=== PATIENT | female | born 1945 | race Caucasian/White ===

== ENCOUNTER 2017-12-29 20:40 | Emergency (ER) | payer MEDICARE, OTHER ==
[~2017-12-29] VITALS: Ht 172.7 cm; Wt 62.6 kg
[~2017-12-29 20:40] MED LIST: AMLODIPINE BES2.5 MG PO; LOSARTAN POTASS50 MG PO; MONTELUKAST SOD10 MG PO; SPIRONOLACTONE25 MG PO; Z.0.ATENOLOL25 MG PO; Z.0.LEVOTHYROXINE25 PO; ZOLPIDEM TARTRAT5 MG PO; clonidine PO
== END 2017-12-29 21:31 | disposition home or self-care (01) ==
LOC: ER 20:40
DX: S81.802A Unspecified open wound, left lower leg, initial encounter (principal); W22.8XXA Striking against or struck by other objects, initial encounter; Y93.01 Activity, walking, marching and hiking; Y92.008 Other place in unspecified non-institutional (private) residence as the place of occurrence of the external cause
CPT/HCPCS: 99282

== ENCOUNTER 2020-10-02 14:29 | Inpatient (IN) | payer MEDICARE, OTHER ==
[~2020-10-02] VITALS: Ht 172.7 cm; Wt 69.0 kg
[2020-10-02] MEDS ORDERED: SODIUM CHLORIDE 0.9% 1000ML 1,000 ML IV STA (14:46)
[2020-10-02] MEDS ORDERED: AMBIEN10 MG PO (14:55)
[2020-10-02] MEDS ORDERED: PROTONIX20 MG PO (14:55)
[2020-10-02] MEDS ORDERED: ZETIA10 MG PO (14:55)
[2020-10-02] MEDS ORDERED: HYDROCHLOROTHIA25 MG PO (14:55)
[2020-10-02] MEDS ORDERED: NEURONTIN300 MG PO (14:55)
[2020-10-02] MEDS ORDERED: ARMOUR PO (14:55)
[2020-10-02] MEDS ORDERED: PIPERACILLIN/TAZOBAC 3.375 GM in SODIUM CHLORIDE 0.9% 50ML 50 ML IV ONE (15:00)
[2020-10-02] MEDS ORDERED: VANCOMYCIN 1GM/NS 250 ML 250 ML IV ONE (15:00)
[2020-10-02] MEDS ORDERED: PIPER-TAZ 3.375 GM 50 ML IV ONE (15:00)
[2020-10-02 15:02] LABS: BASOPHILS # (AUTO) 0.1 (0.0-0.1); BASOPHILS % 0.6 % (0.0-1.0); EOSINOPHILS # (AUTO) 0.1 (0.0-0.4); EOSINOPHILS % 0.7 % (0.0-6.0); HEMATOCRIT 46.4 % (34.2-44.1); HEMOGLOBIN 15.1 g/dL (12.0-16.0); LYMPHOCYTES # (AUTO) 2.2 (1.0-3.2); LYMPHOCYTES % 16.3 % (18.0-39.1); MEAN CORPUSCULAR HEMOGLOBIN 27.1 pg (28-32); MEAN CORPUSCULAR HGB CONC 32.5 g/dL (31-35); MEAN CORPUSCULAR VOLUME 83.2 fL (81-99); MONOCYTES # (AUTO) 1.8 (0.2-0.8); MONOCYTES % 13.2 % (4.4-11.3); NEUTROPHILS # (AUTO) 9.3 (2.1-6.9); NEUTROPHILS % 68.5 % (38.7-80.0); PLATELET COUNT 317 x10e3/uL (140-360); RED BLOOD COUNT 5.58 x10e6/uL (3.6-5.1); RED CELL DISTRIBUTION WIDTH 14.2 % (11.7-14.4)
[2020-10-02 15:10] LABS: CLARITY,URINE SL CLOUDY (CLEAR); COLOR,URINE STRAW (YELLOW); KETONES,URINE TRACE (NEGATIVE); LEUKOCYTE ESTERASE ,URINE SMALL (NEGATIVE); NITRITE,URINE NEGATIVE (NEGATIVE); PROTEIN,URINE DIPSTICK NEGATIVE (NEGATIVE); URINE UROBILINOGEN 0.2 mg/dL (0.2 - 1)
[2020-10-02 15:19] LABS: INR 0.88; PROTHROMBIN TIME 12.5 seconds (11.9-14.5)
[2020-10-02 15:20] LABS: PARTIAL THROMBOPLASTIN TIME 25.2 seconds (23.8-35.5)
[2020-10-02 15:21] LABS: ALBUMIN 3.6 g/dL (3.5-5.0); ALBUMIN/GLOBULIN RATIO 1.2 (0.8-2.0); ANION GAP 15.1 mmol/L (8-16); CALCIUM 9.8 mg/dL (8.4-10.2); CREATININE, SERUM 0.97 mg/dL (0.57-1.11); POTASSIUM 3.1 mmol/L (3.5-5.1)
[2020-10-02 15:23] LABS: AMORPHOUS SEDIMENT,URINE MODERATE (FEW); BACTERIA,URINE MODERATE /HPF; EPITHELIAL CELLS,URINE MANY /LPF
[2020-10-02 15:27] LABS: CREATINE KINASE MB 0.5 ng/mL (0-5.0)
[2020-10-02 15:29] LABS: B-TYPE NATRIURETIC PEPTIDE2 88.3 pg/mL (0-100)
[2020-10-02] MEDS ORDERED: POTASSIUM CHLORIDE 20 MEQ TAB CR PO ONE (15:53)
[2020-10-02] MEDS: SODIUM CHLORIDE 0.9% 1000ML 1,000 ML IV SCH (16:00)
[2020-10-02] MEDS ORDERED: SODIUM CHLORIDE 0.9% 50ML 50 ML ONE (16:20)
[2020-10-02] MEDS ORDERED: IOPAMIDOL 370 MG/ML 200 ML INFUS..BTL INJ ONE (16:20)
[2020-10-02] MEDS ORDERED: ONDANSETRON HCL INJ 2MG/ML 2ML 2 MG/ML VIAL IV PRN (16:30)
[2020-10-02] MEDS ORDERED: PIPER-TAZ 3.375 GM 50 ML IV SCH (21:00)
[2020-10-02] MEDS: PIPERACILLIN/TAZOBAC 3.375 GM in SODIUM CHLORIDE 0.9% 50ML 50 ML IV SCH (21:00)
[2020-10-02] MEDS: VANCOMYCIN 750MG/NS 150ML IVPB 150 ML IV SCH (21:30)
[2020-10-02 23:10] VITALS: BP 139/65
[2020-10-02 23:49] VITALS: BP 139/65
[2020-10-03] VITALS (7 sets, daily range): BP systolic 117–145; BP diastolic 52–65
[2020-10-03] MEDS: SODIUM CHLORIDE 0.9% 1000ML 1,000 ML IV SCH ×3 (00:27→12:42)
[2020-10-03] MEDS ORDERED: ARMOUR THYROID60 MG PO (00:52)
[2020-10-03] MEDS: PIPERACILLIN/TAZOBAC 3.375 GM in SODIUM CHLORIDE 0.9% 50ML 50 ML IV SCH ×4 (03:00→20:50)
[2020-10-03 05:10] LABS: BASOPHILS # (AUTO) 0.1 (0.0-0.1); BASOPHILS % 0.6 % (0.0-1.0); EOSINOPHILS # (AUTO) 0.1 (0.0-0.4); EOSINOPHILS % 1.5 % (0.0-6.0); HEMATOCRIT 40.4 % (34.2-44.1); HEMOGLOBIN 13.1 g/dL (12.0-16.0); LYMPHOCYTES # (AUTO) 1.6 (1.0-3.2); LYMPHOCYTES % 18.6 % (18.0-39.1); MEAN CORPUSCULAR HGB CONC 32.4 g/dL (31-35); MEAN CORPUSCULAR VOLUME 83.3 fL (81-99); MONOCYTES % 11.7 % (4.4-11.3); NEUTROPHILS # (AUTO) 5.9 (2.1-6.9); NEUTROPHILS % 66.9 % (38.7-80.0); PLATELET COUNT 238 x10e3/uL (140-360); RED BLOOD COUNT 4.85 x10e6/uL (3.6-5.1); RED CELL DISTRIBUTION WIDTH 14.1 % (11.7-14.4)
[2020-10-03 05:43] LABS: ALANINE AMINOTRANSFERASE 10 IU/L (0-55); ALBUMIN 2.8 g/dL (3.5-5.0); ALBUMIN/GLOBULIN RATIO 1.3 (0.8-2.0); ALKALINE PHOSPHATASE 82 IU/L (40-150); ANION GAP 11.6 mmol/L (8-16); BLOOD UREA NITROGEN 13 mg/dL (7-26); BUN/CREATININE RATIO 16 (6-25); CALCIUM 8.8 mg/dL (8.4-10.2); CARBON DIOXIDE 25 mmol/L (22-29); CHLORIDE 110 mmol/L (98-107); EST GLOMERULAR FILTRATION RATE > 60 ML/MIN (60-); GLUCOSE 150 mg/dL (74-118); POTASSIUM 3.6 mmol/L (3.5-5.1); SODIUM 143 mmol/L (136-145)
[2020-10-03] MEDS: EZETIMIBE 10 MG TAB PO SCH (09:58)
[2020-10-03] MEDS: PANTOPRAZOLE SOD 40 MG TABEC PO SCH (09:58)
[2020-10-03] MEDS: LOSARTAN POTASSIUM 100 MG TAB PO SCH ×2 (09:58→16:52)
[2020-10-03] MEDS: GABAPENTIN 300 MG CAP PO SCH ×2 (09:58→16:52)
[2020-10-03] MEDS: HYDROCHLOROTHIAZIDE 25 MG TAB PO SCH (09:58)
[2020-10-03] MEDS: THYROID 60 MG TAB PO SCH (09:58)
[2020-10-03] MEDS: VANCOMYCIN 750MG/NS 150ML IVPB 150 ML IV SCH ×2 (11:12→20:51)
[2020-10-03] MEDS: ZOLPIDEM TARTRATE 10 MG TAB PO PRN (20:51)
[2020-10-04] VITALS (8 sets, daily range): BP systolic 122–143; BP diastolic 54–69
[2020-10-04] MEDS: PIPERACILLIN/TAZOBAC 3.375 GM in SODIUM CHLORIDE 0.9% 50ML 50 ML IV SCH ×4 (03:00→20:58)
[2020-10-04] MEDS: COLLAGENASE OINTMENT 30 GM TUBE TP SCH (06:53)
[2020-10-04] MEDS: SODIUM CHLORIDE 0.9% 1000ML 1,000 ML IV SCH ×3 (06:59→18:30)
[2020-10-04] MEDS: HYDROCHLOROTHIAZIDE 25 MG TAB PO SCH (08:38)
[2020-10-04] MEDS: PANTOPRAZOLE SOD 40 MG TABEC PO SCH (08:38)
[2020-10-04] MEDS: LOSARTAN POTASSIUM 100 MG TAB PO SCH ×2 (08:38→16:56)
[2020-10-04] MEDS: GABAPENTIN 300 MG CAP PO SCH ×2 (08:38→16:56)
[2020-10-04] MEDS: EZETIMIBE 10 MG TAB PO SCH (08:40)
[2020-10-04] MEDS: THYROID 60 MG TAB PO SCH (08:40)
[2020-10-04] MEDS: VANCOMYCIN 750MG/NS 150ML IVPB 150 ML IV SCH ×2 (12:00→21:00)
[2020-10-04] MEDS: ZOLPIDEM TARTRATE 10 MG TAB PO PRN (21:00)
[2020-10-05] VITALS (8 sets, daily range): BP systolic 100–144; BP diastolic 52–81
[2020-10-05] MEDS: PIPERACILLIN/TAZOBAC 3.375 GM in SODIUM CHLORIDE 0.9% 50ML 50 ML IV SCH ×4 (03:06→21:00)
[2020-10-05] MEDS: LOSARTAN POTASSIUM 100 MG TAB PO SCH ×2 (08:53→16:36)
[2020-10-05] MEDS: PANTOPRAZOLE SOD 40 MG TABEC PO SCH (08:54)
[2020-10-05] MEDS: GABAPENTIN 300 MG CAP PO SCH ×2 (08:54→16:35)
[2020-10-05] MEDS: HYDROCHLOROTHIAZIDE 25 MG TAB PO SCH (08:54)
[2020-10-05] MEDS: EZETIMIBE 10 MG TAB PO SCH (08:55)
[2020-10-05] MEDS: THYROID 60 MG TAB PO SCH (08:55)
[2020-10-05] MEDS: VANCOMYCIN 750MG/NS 150ML IVPB 150 ML IV SCH ×2 (10:37→22:41)
[2020-10-05] MEDS: SODIUM CHLORIDE 0.9% 1000ML 1,000 ML IV SCH ×2 (10:37→14:30)
[2020-10-05] MEDS: COLLAGENASE OINTMENT 30 GM TUBE TP SCH (16:21)
[2020-10-05] MEDS: ZOLPIDEM TARTRATE 10 MG TAB PO PRN (22:19)
[2020-10-06] VITALS (8 sets, daily range): BP systolic 111–150; BP diastolic 57–68
[2020-10-06] MEDS: SODIUM CHLORIDE 0.9% 1000ML 1,000 ML IV SCH ×3 (00:28→20:30)
[2020-10-06] MEDS: PIPERACILLIN/TAZOBAC 3.375 GM in SODIUM CHLORIDE 0.9% 50ML 50 ML IV SCH ×5 (03:30→21:00)
[2020-10-06] MEDS: LOSARTAN POTASSIUM 100 MG TAB PO SCH ×2 (08:50→16:02)
[2020-10-06] MEDS: EZETIMIBE 10 MG TAB PO SCH (08:50)
[2020-10-06] MEDS: GABAPENTIN 300 MG CAP PO SCH ×2 (08:50→16:02)
[2020-10-06] MEDS: THYROID 60 MG TAB PO SCH (08:50)
[2020-10-06] MEDS: PANTOPRAZOLE SOD 40 MG TABEC PO SCH (08:50)
[2020-10-06] MEDS: HYDROCHLOROTHIAZIDE 25 MG TAB PO SCH (08:51)
[2020-10-06] MEDS: VANCOMYCIN 750MG/NS 150ML IVPB 150 ML IV SCH ×2 (10:10→21:30)
[2020-10-06] MEDS: COLLAGENASE OINTMENT 30 GM TUBE TP SCH (10:28)
[2020-10-06] MEDS: TRAMADOL HCL 50 MG TAB PO PRN (12:26)
[2020-10-06] MEDS: ZOLPIDEM TARTRATE 10 MG TAB PO PRN (22:00)
[2020-10-07] VITALS (8 sets, daily range): BP systolic 118–142; BP diastolic 56–84
[2020-10-07] MEDS: PIPERACILLIN/TAZOBAC 3.375 GM in SODIUM CHLORIDE 0.9% 50ML 50 ML IV SCH ×4 (03:00→20:34)
[2020-10-07] MEDS: SODIUM CHLORIDE 0.9% 1000ML 1,000 ML IV SCH ×2 (04:52→17:04)
[2020-10-07 05:06] LABS: BASOPHILS % 0.2 % (0.0-1.0); EOSINOPHILS # (AUTO) 0.4 (0.0-0.4); HEMATOCRIT 38.1 % (34.2-44.1); HEMOGLOBIN 12.3 g/dL (12.0-16.0); LYMPHOCYTES # (AUTO) 1.1 (1.0-3.2); MEAN CORPUSCULAR HEMOGLOBIN 26.9 pg (28-32); MEAN CORPUSCULAR HGB CONC 32.3 g/dL (31-35); MEAN CORPUSCULAR VOLUME 83.2 fL (81-99); MONOCYTES % 11.9 % (4.4-11.3); NEUTROPHILS # (AUTO) 6.1 (2.1-6.9); NEUTROPHILS % 70.3 % (38.7-80.0); PLATELET COUNT 200 x10e3/uL (140-360); RED BLOOD COUNT 4.58 x10e6/uL (3.6-5.1); RED CELL DISTRIBUTION WIDTH 14.2 % (11.7-14.4)
[2020-10-07 05:26] LABS: ALANINE AMINOTRANSFERASE 14 IU/L (0-55); ALBUMIN 2.6 g/dL (3.5-5.0); ALKALINE PHOSPHATASE 82 IU/L (40-150); ANION GAP 13.4 mmol/L (8-16); BLOOD UREA NITROGEN 10 mg/dL (7-26); BUN/CREATININE RATIO 14 (6-25); CALCIUM 8.3 mg/dL (8.4-10.2); CARBON DIOXIDE 22 mmol/L (22-29); CHLORIDE 112 mmol/L (98-107); CREATININE, SERUM 0.74 mg/dL (0.57-1.11); EST GLOMERULAR FILTRATION RATE > 60 ML/MIN (60-); GLUCOSE 107 mg/dL (74-118); MAGNESIUM 1.8 MG/DL (1.3-2.1); POTASSIUM 3.4 mmol/L (3.5-5.1); SODIUM 144 mmol/L (136-145)
[2020-10-07] MEDS: PANTOPRAZOLE SOD 40 MG TABEC PO SCH (08:42)
[2020-10-07] MEDS: GABAPENTIN 300 MG CAP PO SCH ×2 (08:42→16:06)
[2020-10-07] MEDS: HYDROCHLOROTHIAZIDE 25 MG TAB PO SCH (08:42)
[2020-10-07] MEDS: EZETIMIBE 10 MG TAB PO SCH (08:42)
[2020-10-07] MEDS: THYROID 60 MG TAB PO SCH (08:42)
[2020-10-07] MEDS: LOSARTAN POTASSIUM 100 MG TAB PO SCH ×2 (08:42→16:06)
[2020-10-07] MEDS: VANCOMYCIN 750MG/NS 150ML IVPB 150 ML IV SCH (09:50)
[2020-10-07] MEDS: COLLAGENASE OINTMENT 30 GM TUBE TP SCH (14:19)
[2020-10-07] MEDS: TRAMADOL HCL 50 MG TAB PO PRN (16:11)
[2020-10-07] MEDS ORDERED: POTASSIUM CHLORIDE 10MEQ EA PO ONE (16:30)
[2020-10-07] MEDS: ZOLPIDEM TARTRATE 10 MG TAB PO PRN (20:34)
[2020-10-08] VITALS (8 sets, daily range): BP systolic 120–147; BP diastolic 55–84
[2020-10-08] MEDS: SODIUM CHLORIDE 0.9% 1000ML 1,000 ML IV SCH ×3 (02:30→21:42)
[2020-10-08] MEDS: PIPERACILLIN/TAZOBAC 3.375 GM in SODIUM CHLORIDE 0.9% 50ML 50 ML IV SCH ×4 (03:00→20:15)
[2020-10-08] MEDS: GABAPENTIN 300 MG CAP PO SCH ×2 (08:13→16:09)
[2020-10-08] MEDS: HYDROCHLOROTHIAZIDE 25 MG TAB PO SCH (08:13)
[2020-10-08] MEDS: LOSARTAN POTASSIUM 100 MG TAB PO SCH ×2 (08:13→16:09)
[2020-10-08] MEDS: PANTOPRAZOLE SOD 40 MG TABEC PO SCH (08:13)
[2020-10-08] MEDS: THYROID 60 MG TAB PO SCH (08:13)
[2020-10-08] MEDS: EZETIMIBE 10 MG TAB PO SCH (08:13)
[2020-10-08] MEDS: COLLAGENASE OINTMENT 30 GM TUBE TP SCH (08:13)
[2020-10-08] MEDS: ACETAMINOPHEN 325 MG TAB PO PRN (13:18)
[2020-10-08] MEDS: TRAMADOL HCL 50 MG TAB PO PRN (21:40)
[2020-10-08] MEDS: ZOLPIDEM TARTRATE 10 MG TAB PO PRN (21:47)
[2020-10-09] VITALS (7 sets, daily range): BP systolic 139–152; BP diastolic 56–76
[2020-10-09] MEDS: PIPERACILLIN/TAZOBAC 3.375 GM in SODIUM CHLORIDE 0.9% 50ML 50 ML IV SCH ×4 (03:40→20:57)
[2020-10-09] MEDS: EZETIMIBE 10 MG TAB PO SCH (08:20)
[2020-10-09] MEDS: LOSARTAN POTASSIUM 100 MG TAB PO SCH ×2 (08:20→16:01)
[2020-10-09] MEDS: PANTOPRAZOLE SOD 40 MG TABEC PO SCH (08:20)
[2020-10-09] MEDS: HYDROCHLOROTHIAZIDE 25 MG TAB PO SCH (08:20)
[2020-10-09] MEDS: GABAPENTIN 300 MG CAP PO SCH ×2 (08:20→16:01)
[2020-10-09] MEDS: THYROID 60 MG TAB PO SCH (08:20)
[2020-10-09] MEDS: SODIUM CHLORIDE 0.9% 1000ML 1,000 ML IV SCH ×3 (08:23→20:57)
[2020-10-09] MEDS: COLLAGENASE OINTMENT 30 GM TUBE TP SCH (10:35)
[2020-10-09] MEDS: TRAMADOL HCL 50 MG TAB PO PRN ×2 (15:52→22:09)
[2020-10-09] MEDS: ZOLPIDEM TARTRATE 10 MG TAB PO PRN (22:09)
[2020-10-10] VITALS (8 sets, daily range): BP systolic 110–135; BP diastolic 51–61
[2020-10-10] MEDS: PIPERACILLIN/TAZOBAC 3.375 GM in SODIUM CHLORIDE 0.9% 50ML 50 ML IV SCH ×4 (02:24→21:44)
[2020-10-10] MEDS: ACETAMINOPHEN 325 MG TAB PO PRN (05:02)
[2020-10-10] MEDS: GABAPENTIN 300 MG CAP PO SCH ×2 (08:53→16:44)
[2020-10-10] MEDS: HYDROCHLOROTHIAZIDE 25 MG TAB PO SCH (08:53)
[2020-10-10] MEDS: COLLAGENASE OINTMENT 30 GM TUBE TP SCH (08:53)
[2020-10-10] MEDS: THYROID 60 MG TAB PO SCH (08:53)
[2020-10-10] MEDS: LOSARTAN POTASSIUM 100 MG TAB PO SCH ×2 (08:53→16:44)
[2020-10-10] MEDS: PANTOPRAZOLE SOD 40 MG TABEC PO SCH (08:53)
[2020-10-10] MEDS: EZETIMIBE 10 MG TAB PO SCH (08:53)
[2020-10-10] MEDS ORDERED: VANCOMYCIN 750MG/NS 150ML IVPB 150 ML IV SCH (09:45)
[2020-10-10] MEDS: SODIUM CHLORIDE 0.9% 1000ML 1,000 ML IV SCH (14:30)
[2020-10-10] MEDS: VANCOMYCIN 1GM/NS 250 ML 250 ML IV SCH (14:37)
[2020-10-10] MEDS: TRAMADOL HCL 50 MG TAB PO PRN (15:00)
[2020-10-10] MEDS: ONDANSETRON HCL 4 MG ORAL DISINTEGRATING TAB PO PRN (15:00)
[2020-10-10] MEDS: ALTEPLASE RECOMBINANT 2 MG/2 ML VIAL IV PRN (17:34)
[2020-10-10] MEDS: ZOLPIDEM TARTRATE 5 MG TAB PO PRN (22:04)
[2020-10-11] VITALS (8 sets, daily range): BP systolic 94–126; BP diastolic 54–79
[2020-10-11] MEDS: SODIUM CHLORIDE 0.9% 1000ML 1,000 ML IV SCH ×2 (02:24→09:29)
[2020-10-11] MEDS: PIPERACILLIN/TAZOBAC 3.375 GM in SODIUM CHLORIDE 0.9% 50ML 50 ML IV SCH ×4 (03:52→21:00)
[2020-10-11] MEDS: PANTOPRAZOLE 40 MG 10ML VIAL IV SCH ×2 (09:28→17:30)
[2020-10-11] MEDS: GABAPENTIN 300 MG CAP PO SCH ×2 (09:29→17:30)
[2020-10-11] MEDS: COLLAGENASE OINTMENT 30 GM TUBE TP SCH ×2 (09:29→15:28)
[2020-10-11] MEDS: THYROID 60 MG TAB PO SCH (09:29)
[2020-10-11] MEDS: HYDROCHLOROTHIAZIDE 25 MG TAB PO SCH (09:29)
[2020-10-11] MEDS: EZETIMIBE 10 MG TAB PO SCH (09:29)
[2020-10-11] MEDS: LOSARTAN POTASSIUM 100 MG TAB PO SCH ×2 (09:29→17:30)
[2020-10-11] MEDS: VANCOMYCIN 1GM/NS 250 ML 250 ML IV SCH (12:03)
[2020-10-11] MEDS ORDERED: FUROSEMIDE INJ 10 MG/ML 2 ML VIAL IV ONE (12:30)
[2020-10-11] MEDS ORDERED: KETOROLAC TROMETHAMINE 30 MG/ML VIAL IV PRN (12:30)
[2020-10-11] MEDS: ZOLPIDEM TARTRATE 5 MG TAB PO PRN (21:31)
[2020-10-12] VITALS (7 sets, daily range): BP systolic 108–130; BP diastolic 57–84
[2020-10-12] MEDS: PIPERACILLIN/TAZOBAC 3.375 GM in SODIUM CHLORIDE 0.9% 50ML 50 ML IV SCH ×4 (03:00→20:51)
[2020-10-12] MEDS: SODIUM CHLORIDE 0.9% 1000ML 1,000 ML IV SCH (04:25)
[2020-10-12 06:39] LABS: ANION GAP 10.5 mmol/L (8-16); BLOOD UREA NITROGEN 7 mg/dL (7-26); BUN/CREATININE RATIO 10 (6-25); CARBON DIOXIDE 29 mmol/L (22-29); CHLORIDE 105 mmol/L (98-107); CREATININE, SERUM 0.71 mg/dL (0.57-1.11); EST GLOMERULAR FILTRATION RATE > 60 ML/MIN (60-); GLUCOSE 99 mg/dL (74-118); SODIUM 142 mmol/L (136-145)
[2020-10-12 06:43] LABS: POTASSIUM 2.5 mmol/L (3.5-5.1)
[2020-10-12] MEDS: LOSARTAN POTASSIUM 100 MG TAB PO SCH ×2 (08:53→16:14)
[2020-10-12] MEDS: PANTOPRAZOLE 40 MG 10ML VIAL IV SCH ×2 (08:53→16:14)
[2020-10-12] MEDS: EZETIMIBE 10 MG TAB PO SCH (08:53)
[2020-10-12] MEDS: HYDROCHLOROTHIAZIDE 25 MG TAB PO SCH (08:53)
[2020-10-12] MEDS: GABAPENTIN 300 MG CAP PO SCH ×2 (08:53→16:13)
[2020-10-12] MEDS: COLLAGENASE OINTMENT 30 GM TUBE TP SCH (08:53)
[2020-10-12] MEDS: THYROID 60 MG TAB PO SCH (08:53)
[2020-10-12] MEDS: POTASSIUM CHLORIDE 20MEQ/100ML 200 ML IV SCH ×2 (09:53→11:00)
[2020-10-12] MEDS: VANCOMYCIN 1GM/NS 250 ML 250 ML IV SCH (12:19)
[2020-10-12] MEDS ORDERED: FUROSEMIDE INJ 10 MG/ML 4 ML VIAL IV ONE (15:15)
[2020-10-12] MEDS: ZOLPIDEM TARTRATE 5 MG TAB PO PRN (20:51)
[2020-10-12] MEDS: GUAIFENESIN/DEXTROMETHORPHAN LIQD 5 ML UDC NG PRN (21:32)
[2020-10-13] VITALS (8 sets, daily range): BP systolic 105–116; BP diastolic 52–86
[2020-10-13] MEDS: PIPERACILLIN/TAZOBAC 3.375 GM in SODIUM CHLORIDE 0.9% 50ML 50 ML IV SCH ×4 (02:57→20:50)
[2020-10-13] MEDS: GUAIFENESIN/DEXTROMETHORPHAN LIQD 5 ML UDC NG PRN ×3 (06:01→21:47)
[2020-10-13] MEDS: ALTEPLASE RECOMBINANT 2 MG/2 ML VIAL IV PRN (06:45)
[2020-10-13 07:41] LABS: BASOPHILS % 0.3 % (0.0-1.0); EOSINOPHILS # (AUTO) 0.4 (0.0-0.4); EOSINOPHILS % 6.5 % (0.0-6.0); HEMATOCRIT 35.1 % (34.2-44.1); HEMOGLOBIN 11.6 g/dL (12.0-16.0); LYMPHOCYTES % 14.4 % (18.0-39.1); MEAN CORPUSCULAR HEMOGLOBIN 26.8 pg (28-32); MEAN CORPUSCULAR VOLUME 81.1 fL (81-99); MONOCYTES # (AUTO) 0.6 (0.2-0.8); MONOCYTES % 8.8 % (4.4-11.3); NEUTROPHILS # (AUTO) 4.7 (2.1-6.9); NEUTROPHILS % 69.3 % (38.7-80.0); PLATELET COUNT 179 x10e3/uL (140-360); RED BLOOD COUNT 4.33 x10e6/uL (3.6-5.1); RED CELL DISTRIBUTION WIDTH 14.3 % (11.7-14.4)
[2020-10-13 08:01] LABS: ANION GAP 12.8 mmol/L (8-16); BLOOD UREA NITROGEN 8 mg/dL (7-26); BUN/CREATININE RATIO 10 (6-25); CALCIUM 8.9 mg/dL (8.4-10.2); CARBON DIOXIDE 28 mmol/L (22-29); CHLORIDE 102 mmol/L (98-107); CREATININE, SERUM 0.77 mg/dL (0.57-1.11); EST GLOMERULAR FILTRATION RATE > 60 ML/MIN (60-); GLUCOSE 104 mg/dL (74-118); SODIUM 140 mmol/L (136-145)
[2020-10-13 08:05] LABS: POTASSIUM 2.8 mmol/L (3.5-5.1)
[2020-10-13] MEDS ORDERED: POTASSIUM CHLORIDE 20 MEQ TAB CR PO ONE ×2 (08:45→12:15)
[2020-10-13] MEDS: LOSARTAN POTASSIUM 100 MG TAB PO SCH ×2 (08:50→16:57)
[2020-10-13] MEDS: HYDROCHLOROTHIAZIDE 25 MG TAB PO SCH (08:50)
[2020-10-13] MEDS: EZETIMIBE 10 MG TAB PO SCH (08:51)
[2020-10-13] MEDS: THYROID 60 MG TAB PO SCH (08:51)
[2020-10-13] MEDS: PANTOPRAZOLE 40 MG 10ML VIAL IV SCH ×2 (08:53→16:57)
[2020-10-13] MEDS: VANCOMYCIN 1GM/NS 250 ML 250 ML IV SCH (12:55)
[2020-10-13] MEDS: COLLAGENASE OINTMENT 30 GM TUBE TP SCH (12:55)
[2020-10-13] MEDS: ZOLPIDEM TARTRATE 5 MG TAB PO PRN (21:47)
[2020-10-14] VITALS (7 sets, daily range): BP systolic 111–133; BP diastolic 18–77
[2020-10-14] MEDS: PIPERACILLIN/TAZOBAC 3.375 GM in SODIUM CHLORIDE 0.9% 50ML 50 ML IV SCH ×4 (03:50→21:27)
[2020-10-14 06:42] LABS: ALANINE AMINOTRANSFERASE 28 IU/L (0-55); ALBUMIN 2.6 g/dL (3.5-5.0); ALBUMIN/GLOBULIN RATIO 0.9 (0.8-2.0); ALKALINE PHOSPHATASE 103 IU/L (40-150); ANION GAP 14.7 mmol/L (8-16); BLOOD UREA NITROGEN 7 mg/dL (7-26); BUN/CREATININE RATIO 9 (6-25); CALCIUM 9.6 mg/dL (8.4-10.2); CARBON DIOXIDE 27 mmol/L (22-29); CHLORIDE 105 mmol/L (98-107); CREATININE, SERUM 0.79 mg/dL (0.57-1.11); EST GLOMERULAR FILTRATION RATE > 60 ML/MIN (60-); GLUCOSE 111 mg/dL (74-118); MAGNESIUM 1.8 MG/DL (1.3-2.1); POTASSIUM 3.7 mmol/L (3.5-5.1); SODIUM 143 mmol/L (136-145)
[2020-10-14] MEDS: LOSARTAN POTASSIUM 100 MG TAB PO SCH ×2 (08:42→17:05)
[2020-10-14] MEDS: HYDROCHLOROTHIAZIDE 25 MG TAB PO SCH (08:42)
[2020-10-14] MEDS: EZETIMIBE 10 MG TAB PO SCH (08:42)
[2020-10-14] MEDS: PANTOPRAZOLE 40 MG 10ML VIAL IV SCH ×2 (08:43→17:04)
[2020-10-14] MEDS: THYROID 60 MG TAB PO SCH (08:43)
[2020-10-14] MEDS: COLLAGENASE OINTMENT 30 GM TUBE TP SCH (09:00)
[2020-10-14] MEDS: VANCOMYCIN 1GM/NS 250 ML 250 ML IV SCH (11:00)
[2020-10-14] MEDS: GUAIFENESIN/DEXTROMETHORPHAN LIQD 5 ML UDC NG PRN ×2 (14:40→22:00)
[2020-10-14] MEDS: ONDANSETRON HCL 4 MG ORAL DISINTEGRATING TAB PO PRN (17:16)
[2020-10-14] MEDS: ZOLPIDEM TARTRATE 5 MG TAB PO PRN (22:00)
[2020-10-15] MEDS: PIPERACILLIN/TAZOBAC 3.375 GM in SODIUM CHLORIDE 0.9% 50ML 50 ML IV SCH ×2 (03:50→08:47)
[2020-10-15 04:00] VITALS: BP 139/71
[2020-10-15 07:52] VITALS: BP 123/60
[2020-10-15 07:53] VITALS: BP 123/60
[2020-10-15] MEDS: THYROID 60 MG TAB PO SCH (08:47)
[2020-10-15] MEDS: HYDROCHLOROTHIAZIDE 25 MG TAB PO SCH (08:47)
[2020-10-15] MEDS: LOSARTAN POTASSIUM 100 MG TAB PO SCH (08:47)
[2020-10-15] MEDS: COLLAGENASE OINTMENT 30 GM TUBE TP SCH (08:47)
[2020-10-15] MEDS: PANTOPRAZOLE 40 MG 10ML VIAL IV SCH (08:47)
[2020-10-15] MEDS: EZETIMIBE 10 MG TAB PO SCH (08:47)
[2020-10-15] MEDS ORDERED: DOXYCYCLINE HY100 MG PO (09:21)
== END 2020-10-15 10:41 | disposition home or self-care (01) | DRG 872 ==
LOC: ER 14:35 → ERHOLD 17:24 → MED/SURG3 22:55
PROVIDERS: ADMIT Internal Medicine; ATTEND Internal Medicine
PROC: 02HV33Z Insertion of Infusion Device into Superior Vena Cava, Percutaneous Approach (ICD-10-PCS; principal; 2020-10-06)
DX: A41.9 Sepsis, unspecified organism (principal); N39.0 Urinary tract infection, site not specified; L03.116 Cellulitis of left lower limb; I10 Essential (primary) hypertension; E03.9 Hypothyroidism, unspecified; K21.9 Gastro-esophageal reflux disease without esophagitis; Z88.2 Allergy status to sulfonamides; Z88.8 Allergy status to other drugs, medicaments and biological substances; Z82.49 Family history of ischemic heart disease and other diseases of the circulatory system; E78.5 Hyperlipidemia, unspecified; B95.2 Enterococcus as the cause of diseases classified elsewhere; G62.9 Polyneuropathy, unspecified; K29.70 Gastritis, unspecified, without bleeding; E87.5 Hyperkalemia; Z20.822 Contact with and (suspected) exposure to COVID-19; S90.512A Abrasion, left ankle, initial encounter
CPT/HCPCS: 36415; 36569; 71045; 71260; 80048; 80053; 80202; 81001; 82550; 82553; 83605; 83735; 83880; 84484; 85025; 85379; 85610; 85730; 87040; 87086; 87186; 93005; 93971; 96360; 99251; 99284; J1940; J2543; J2997; J3370; J3480; J7030; Q0162; Q9967; U0002

== ENCOUNTER 2020-10-23 08:28 | Outpatient (RCR) | payer MEDICARE, OTHER ==
[~2020-10-23 08:28] MED LIST changes: +AMBIEN10 MG PO; +ARMOUR PO; +ARMOUR THYROID60 MG PO; +COLLAGENASE OINTMENT 30 GM TUBE ONE; +DOXYCYCLINE HY100 MG PO; +HYDROCHLOROTHIA25 MG PO; +LIDOCAINE/PRILOCAINE 2.5-2.5% KIT ONE; +MUPIROCIN 2% OINT 22 GM TUBE ONE; +NEURONTIN300 MG PO; +PROTONIX20 MG PO; +ZETIA10 MG PO
[2020-10-23] MEDS ORDERED: LIDOCAINE/PRILOCAINE 2.5-2.5% KIT ONE (17:51)
== END 2020-11-03 ==
LOC: WCC 08:28
PROVIDERS: ATTEND Family Medicine
DX: L03.116 Cellulitis of left lower limb (principal); S81.802A Unspecified open wound, left lower leg, initial encounter; R60.9 Edema, unspecified; I87.2 Venous insufficiency (chronic) (peripheral); I10 Essential (primary) hypertension; E03.9 Hypothyroidism, unspecified; W45.8XXA Other foreign body or object entering through skin, initial encounter

== ENCOUNTER 2020-11-26 08:26 | Outpatient (RCR) | payer MEDICARE, OTHER | END 2020-12-03 | LOC: WCC 08:26 | PROVIDERS: ATTEND Family Medicine | DX: L03.116 Cellulitis of left lower limb (principal); S81.802A Unspecified open wound, left lower leg, initial encounter; I87.2 Venous insufficiency (chronic) (peripheral); R60.9 Edema, unspecified; I10 Essential (primary) hypertension; E03.9 Hypothyroidism, unspecified; W45.8XXA Other foreign body or object entering through skin, initial encounter ==

== ENCOUNTER → 2021-04-07 | Day surgery (SDC) | payer MEDICARE, OTHER ==
[2021-04-03 10:10] LABS: BASOPHILS # (AUTO) 0.1 (0.0-0.1); BASOPHILS % 0.7 % (0.0-1.0); EOSINOPHILS # (AUTO) 0.3 (0.0-0.4); EOSINOPHILS % 3.4 % (0.0-6.0); HEMATOCRIT 50.9 % (34.2-44.1); LYMPHOCYTES # (AUTO) 2.2 (1.0-3.2); LYMPHOCYTES % 22.2 % (18.0-39.1); MEAN CORPUSCULAR HEMOGLOBIN 26.4 pg (28-32); MEAN CORPUSCULAR HGB CONC 31.4 g/dL (31-35); MEAN CORPUSCULAR VOLUME 83.9 fL (81-99); MONOCYTES # (AUTO) 0.9 (0.2-0.8); NEUTROPHILS # (AUTO) 6.3 (2.1-6.9); PLATELET COUNT 267 x10e3/uL (140-360); RED BLOOD COUNT 6.07 x10e6/uL (3.6-5.1); RED CELL DISTRIBUTION WIDTH 15.2 % (11.7-14.4)
[2021-04-03 10:36] LABS: ANION GAP 14.6 mmol/L (8-16); CALCIUM 10.8 mg/dL (8.4-10.2); CREATININE, SERUM 1.06 mg/dL (0.57-1.11); POTASSIUM 3.6 mmol/L (3.5-5.1)
[~2021-04-07] MED LIST changes: +BUPIVACAINE HCL 0.5% INJ 30 ML VIAL INJ ONE; -COLLAGENASE OINTMENT 30 GM TUBE ONE; +IOPAMIDOL 200 MG/ML 20 ML VIAL IT ONE; +LIDOCAINE HCL 1% LOCAL INJ 20 ML VIAL ONE; -LIDOCAINE/PRILOCAINE 2.5-2.5% KIT ONE; -MUPIROCIN 2% OINT 22 GM TUBE ONE; +POVIDONE IODINE 0.05% 0.05 % ML PO ONE; +PROPOFOL IV EMULSION 10 MG/ML 20 ML VIAL ONE; +TRIAMCINOLONE ACET 40 MG/ML VIAL ONE
[2021-04-07 11:05] VITALS: BP 104/59
== END | disposition home or self-care (01) ==
LOC: OR 09:00
PROVIDERS: ATTEND Specialist
DX: M16.11 Unilateral primary osteoarthritis, right hip (principal); M17.0 Bilateral primary osteoarthritis of knee; M54.9 Dorsalgia, unspecified; I10 Essential (primary) hypertension; I71.4 Abdominal aortic aneurysm, without rupture; Z88.1 Allergy status to other antibiotic agents; Z88.2 Allergy status to sulfonamides; Z88.8 Allergy status to other drugs, medicaments and biological substances; Z01.810 Encounter for preprocedural cardiovascular examination; Z01.812 Encounter for preprocedural laboratory examination; Z20.822 Contact with and (suspected) exposure to COVID-19
CPT/HCPCS: 20610; 36415; 77002; 80048; 85025; 93005; J2704; J3301; Q9967; U0002; J2001

== ENCOUNTER → 2021-05-11 | Day surgery (SDC) | payer MEDICARE, OTHER ==
[~2021-05-11] MED LIST changes: +BUPIVACAINE HCL 0.5% 10ML MPF VIAL INJ ONE; +FENTANYL CITRATE/PF 100MCG/2 ML INJ ONE; +LIDOCAINE HCL 1% 30ML-PF VIAL ONE; -LIDOCAINE HCL 1% LOCAL INJ 20 ML VIAL ONE; +MIDAZOLAM HCL 2 MG/2 ML VIAL ONE; +ONDANSETRON HCL INJ 2MG/ML 2ML 2 MG/ML VIAL ONE
[2021-05-11 07:30] VITALS: BP 112/53
== END | disposition home or self-care (01) ==
LOC: OR 06:19
PROVIDERS: ATTEND Specialist
DX: M16.12 Unilateral primary osteoarthritis, left hip (principal); M54.9 Dorsalgia, unspecified; M54.2 Cervicalgia; I10 Essential (primary) hypertension; E78.5 Hyperlipidemia, unspecified; I71.4 Abdominal aortic aneurysm, without rupture; R00.2 Palpitations; Z88.2 Allergy status to sulfonamides; Z88.8 Allergy status to other drugs, medicaments and biological substances; Z01.812 Encounter for preprocedural laboratory examination; Z20.822 Contact with and (suspected) exposure to COVID-19; Z90.2 Acquired absence of lung [part of]; Z85.118 Personal history of other malignant neoplasm of bronchus and lung
CPT/HCPCS: 20610; 77002; J2250; J2405; J2704; J3010; J3301; Q9967; U0002; J2001

== ENCOUNTER 2021-09-02 09:52 | Outpatient (RCR) | payer MEDICARE, OTHER ==
[~2021-09-02 09:52] MED LIST changes: -BUPIVACAINE HCL 0.5% 10ML MPF VIAL INJ ONE; -BUPIVACAINE HCL 0.5% INJ 30 ML VIAL INJ ONE; +COLLAGENASE OINTMENT 30 GM TUBE ONE; -FENTANYL CITRATE/PF 100MCG/2 ML INJ ONE; -IOPAMIDOL 200 MG/ML 20 ML VIAL IT ONE; -LIDOCAINE HCL 1% 30ML-PF VIAL ONE; +LIDOCAINE VISC 2% SOLN 15 ML UDC ONE; -MIDAZOLAM HCL 2 MG/2 ML VIAL ONE; +MUPIROCIN 2% OINT 22 GM TUBE ONE; -ONDANSETRON HCL INJ 2MG/ML 2ML 2 MG/ML VIAL ONE; -POVIDONE IODINE 0.05% 0.05 % ML PO ONE; -PROPOFOL IV EMULSION 10 MG/ML 20 ML VIAL ONE; -TRIAMCINOLONE ACET 40 MG/ML VIAL ONE
== END 2021-09-03 ==
LOC: WCC 09:52
PROVIDERS: ATTEND Family Medicine
DX: S91.001A Unspecified open wound, right ankle, initial encounter (principal); L03.116 Cellulitis of left lower limb; S51.001A Unspecified open wound of right elbow, initial encounter; S51.801A Unspecified open wound of right forearm, initial encounter; I87.2 Venous insufficiency (chronic) (peripheral); U07.1 COVID-19; I10 Essential (primary) hypertension; E03.9 Hypothyroidism, unspecified; W07.XXXA Fall from chair, initial encounter; W45.8XXA Other foreign body or object entering through skin, initial encounter
CPT/HCPCS: 87071; 87075; 87205